=== PATIENT | female | born 1935 | race Caucasian/White ===

== ENCOUNTER 2021-09-26 19:52 | Inpatient (IN) | payer OTHER ==
[~2021-09-26] VITALS: Ht 157.5 cm; Wt 54.4 kg
[~2021-09-26 19:52] MED LIST: ASPI81CH
[2021-09-26 21:32] LABS: BASOPHILS ABSOLUTE AUTO 0.06 K/mm3 (0.00-0.23); BASOPHILS PERCENT AUTO 1 % (0-2); EOSINOPHILS ABSOLUTE AUTO 0.03 K/mm3 (0.00-0.68); EOSINOPHILS PERCENT AUTO 0 % (0-6); Hemoglobin 12.4 g/dL (11.5-16.0); IMMATURE GRAN ABSOLUTE AUTO 0.08 K/mm3 (0.00-0.10); IMMATURE GRAN PERCENT AUTO 1 % (0-1); LYMPHOCYTES ABSOLUTE AUTO 0.97 K/mm3 (0.84-5.20); LYMPHOCYTES PERCENT AUTO 9 % (21-46); MONOCYTES ABSOLUTE AUTO 0.47 K/mm3 (0.16-1.47); MONOCYTES PERCENT AUTO 5 % (4-13); Mean Corpuscular HGB 33.7 pg (26.0-34.0); Mean Corpuscular HGB Conc 32.6 g/dL (31.5-36.5); Mean Corpuscular Volume 103 fL (80-100); Mean Platelet Volume 10.7 fL (9.1-12.4); NEUTROPHILS ABSOLUTE AUTO 8.94 K/mm3 (1.96-9.15); NEUTROPHILS PERCENT AUTO 85 % (41-73); Platelet Count 184 K/mm3 (150-400); RDW Coefficient Variation 12.5 % (11.7-14.2); RDW Standard Deviation 48.2 fL (35.1-46.3); Red Blood Cell Count 3.68 M/mm3 (3.80-5.20); White Blood Cell Count 10.55 K/mm3 (4.00-11.30)
[2021-09-26 21:54] LABS: Magnesium, Blood 1.9 mg/dL (1.6-2.4)
[2021-09-26 21:56] LABS: Alanine Aminotransfer (ALT/SGP 23 U/L (12-78); Albumin, Blood 3.1 g/dL (3.4-5.0); Albumin/Globulin Ratio 0.9 (0.8-1.8); Alk Phos 56 U/L (50-136); Anion Gap 5 mmol/L (6-16); Aspartate Aminotrans (AST/SGOT 28 U/L (12-37); Blood Urea Nitrogen 12 mg/dL (8-24); Bun/Creatinine Ratio 14.9 (12.0-20.0); CO2, Blood 26 mmol/L (21-32); Calcium, Blood 8.6 mg/dL (8.5-10.1); Chloride, Blood 105 mmol/L (98-108); Creatinine, Blood 0.81 mg/dL (0.40-1.00); Globulin, Blood 3.3 g/dL (2.2-4.0); Glomerular Filtration Rate >60 (60-); Glucose, Blood 160 mg/dL (70-99); Phosphorus, Blood 4.1 mg/dL (2.5-4.9); Potassium, Blood 4.1 mmol/L (3.5-5.5); Sodium, Blood 136 mmol/L (136-145); Total Protein, Blood 6.4 g/dL (6.4-8.2)
[2021-09-27 01:01] LABS: PCO2 Arterial 35.8 mmHg (35-45); PO2 Arterial 142 mmHg (80-100); pH Blood Arterial 7.49 (7.35-7.45)
--- NOTE | 2021-09-27 01:05 | NUR ---
ARRIVAL PT ARRIVES TO ICU VIA GURNEY WITH ED RN AND RT. SHE IS SEDATED WITH PROPOFOL AT 9MCG/KG/MIN. WITH STIMULATION, SHE OPENS EYES AND GRIMACES. PROPOFOL TITRATED TO 20MCG/KG/MIN. SHE IS INTUBATED WITH 7.5 TUBE AT 22CM. VENT SETTINGS AC/VC 16/400/7/100%. GLEASON PLACED. VSS AT THIS TIME. DAUGHTER AND GRANDSON AT BEDSIDE FOR UPDATE. SEE SHIFT ASSESSMENT.
[2021-09-27 01:34] LABS: Source, Urine Foley catheter
[2021-09-27 01:36] LABS: Bilirubin, Urine Neg (Neg); Blood, Urine 1+ (Neg); Glucose Qualitative, Urine Neg (Neg); Ketones, Urine 2+ (Neg); Leukocyte Esterase, Urine Neg (Neg); Nitrite, Urine Neg (Neg); Protein, Urine 1+ (Neg); Urobilinogen, Urine NORM (Normal)
[2021-09-27 01:46] LABS: Appearance, Urine Clear (Clear); Bacteria Not Seen /hpf; Color, Urine Yellow (P-Yellow); Mucus Light (0-Heavy); Squamous Epithelial Cells Rare /hpf (Few); White Blood Cells, Urine Rare /hpf (0-5)
[2021-09-27 03:54] LABS: Influenza A, PCR NEGATIVE (NEGATIVE); Influenza B, PCR NEGATIVE (NEGATIVE); Resp Syncytial Virus, PCR NEGATIVE (NEGATIVE); SARS-Cov-2 (COVID-19) PCR, MMC NEGATIVE (NEGATIVE)
[2021-09-27 05:44] LABS: BASOPHILS ABSOLUTE AUTO 0.03 K/mm3 (0.00-0.23); BASOPHILS PERCENT AUTO 0 % (0-2); EOSINOPHILS PERCENT AUTO 0 % (0-6); Hematocrit 34.6 % (33.0-51.0); Hemoglobin 11.6 g/dL (11.5-16.0); IMMATURE GRAN ABSOLUTE AUTO 0.08 K/mm3 (0.00-0.10); IMMATURE GRAN PERCENT AUTO 1 % (0-1); LYMPHOCYTES ABSOLUTE AUTO 0.76 K/mm3 (0.84-5.20); LYMPHOCYTES PERCENT AUTO 5 % (21-46); MONOCYTES ABSOLUTE AUTO 0.69 K/mm3 (0.16-1.47); MONOCYTES PERCENT AUTO 5 % (4-13); Mean Corpuscular HGB Conc 33.5 g/dL (31.5-36.5); Mean Corpuscular Volume 102 fL (80-100); Mean Platelet Volume 11.1 fL (9.1-12.4); NEUTROPHILS ABSOLUTE AUTO 12.49 K/mm3 (1.96-9.15); NEUTROPHILS PERCENT AUTO 89 % (41-73); Platelet Count 141 K/mm3 (150-400); RDW Coefficient Variation 12.6 % (11.7-14.2); Red Blood Cell Count 3.41 M/mm3 (3.80-5.20); White Blood Cell Count 14.05 K/mm3 (4.00-11.30)
[2021-09-27 06:02] LABS: Anion Gap 10 mmol/L (6-16); Blood Urea Nitrogen 12 mg/dL (8-24); Bun/Creatinine Ratio 19.2 (12.0-20.0); CO2, Blood 26 mmol/L (21-32); Calcium, Blood 9.3 mg/dL (8.5-10.1); Chloride, Blood 104 mmol/L (98-108); Creatinine, Blood 0.63 mg/dL (0.40-1.00); Glomerular Filtration Rate >60 (60-); Glucose, Blood 166 mg/dL (70-99); Potassium, Blood 3.4 mmol/L (3.5-5.5); Sodium, Blood 140 mmol/L (136-145)
--- NOTE | 2021-09-27 06:10 | NUR ---
SHIFT SUMMARY PT REMAINS INTUBATED WITH VENT SETTINGS AC/VC 16/380/5/50%. SHE IS RECEIVING PROPOFOL 20MCG/KG/MIN AND NS 125ML/HR. OGT IS CONNECTED TO LOW INT SUCTION AND DRAINING BILE. GLEASON PATENT AND DRAINING CLEAR/YELLOW URINE WITH SHIFT OUTPUT OF 550ML. TRANSVENOUS PACEMAKER TO L CHEST. RATE 60, OUTPUT 10, SENSITIVITY 2 AND INSERTED 40CM. HR HAS BEEN 60 FOR MOST OF NIGHT. WHEN SEDATION IS TURNED DOWN OR OFF, PT WAKENS QUICKLY. SHE TRACKS MOVEMENTS, MOVES EXTREMITIES, AND ANSWERS QUESTIONS BY NODDING/SHAKING HEAD. VSS AT THIS TIME. WILL REPORT TO ONCOMING RN.
--- NOTE | 2021-09-27 07:48 | NUR ---
Assumed Care. Pt opens eyes and is able to answer yes and no questions with head knods. Fusing Machine Tender and follows directions. Pupils reactive, good gag, swallow, and cough noted. Grimacing in pain, knodded yes to chest discomfort from CPR. Fentanyl 50mcq given. Propofol turned up to 30mcq as she was awake and easily aggitated. Lung sounds coarse. AC Vent settings: 16/380/15/50%. Suction performed which the patient did not tolerate well. With repositioning and suction she had 9-10 Beat polymorphic Vtach run. Strips sent to chart. TV Pacer in place and set at 60/10/2. Lowest HR noted was 59, 100% paced. TV pacer dressing intact, marked at 40cm. Abd soft, BT hypoactive. OG to LIS, yellow bile small amounts. Cath is patent with clear yellow. Called Dr. Angeles in regards to run of VTach, and increase in WBC this am. Informed Mag was added to this am labs. Procedure planned for pacemaker placement at [address] Angeles. Will continue to montior and provide care.
--- NOTE | 2021-09-27 08:45 | NUR ---
DR. LORENZ IN ROOM ALONG WITH BOTH OF HER DAUGHTERS. CONSENTS SIGNED. ANSWERED QUESTIONS FOR FAMILY.
--- NOTE | 2021-09-27 09:45 | NUR ---
PATIENT OFF TO COMMUNICATION ASSISTANT, WILL BE COMPANING HER FOR MANAGMENT OF DRIPS AND SEDATION.
--- NOTE | 2021-09-27 12:18 | NUR ---
Patient back from cathead operator at 1140. Please procedure notes. During Procedure she was increased to 50mcq on propofol at 0958. Levophed was started at 1001 due to MAP down to 60, started at 5mcq, then increased to 10mcq. 500 bolus was started at [address] Angeles orders and Levo was stopped at 1012. See EMar for start of other due meds. Dr. Walker in room as soon as patient got back. Vent settings changed to 16/380/15/30%. Decreased propofol to 30. OG hooked back up to LIS. Family now in the room at bedside.
--- NOTE | 2021-09-27 13:00 | NUR ---
PT HAD 20+ BEAT RUN OF POLYMORPHIC V-TACH. SBP [id number]. DR. BEJARANO AND DR. LORENZ AWARE-SEE NEW ORDERS.
--- NOTE | 2021-09-27 14:25 | NUR ---
Spoke with Dr. Walker regarding patient run of VTach. As she has had several little runs since she has been back from the calibration laboratory technician. It was decided to keep the patient intubated at this time, plan will be to extubated tomorrow, allowing for patient to rest.
[2021-09-27 16:16] LABS: BASOPHILS ABSOLUTE AUTO 0.05 K/mm3 (0.00-0.23); BASOPHILS PERCENT AUTO 0 % (0-2); EOSINOPHILS ABSOLUTE AUTO 0.02 K/mm3 (0.00-0.68); EOSINOPHILS PERCENT AUTO 0 % (0-6); Hematocrit 37.8 % (33.0-51.0); Hemoglobin 12.6 g/dL (11.5-16.0); IMMATURE GRAN ABSOLUTE AUTO 0.17 K/mm3 (0.00-0.10); IMMATURE GRAN PERCENT AUTO 1 % (0-1); LYMPHOCYTES ABSOLUTE AUTO 4.12 K/mm3 (0.84-5.20); LYMPHOCYTES PERCENT AUTO 24 % (21-46); MONOCYTES PERCENT AUTO 5 % (4-13); Mean Corpuscular HGB 33.7 pg (26.0-34.0); Mean Corpuscular HGB Conc 33.3 g/dL (31.5-36.5); Mean Corpuscular Volume 101 fL (80-100); Mean Platelet Volume 10.9 fL (9.1-12.4); NEUTROPHILS ABSOLUTE AUTO 12.14 K/mm3 (1.96-9.15); NEUTROPHILS PERCENT AUTO 70 % (41-73); Platelet Count 168 K/mm3 (150-400); RDW Coefficient Variation 12.8 % (11.7-14.2); RDW Standard Deviation 47.4 fL (35.1-46.3); Red Blood Cell Count 3.74 M/mm3 (3.80-5.20)
[2021-09-27 16:19] LABS: PCO2 Arterial 38.4 mmHg (35-45); PO2 Arterial 53.7 mmHg (80-100); pH Blood Arterial 7.39 (7.35-7.45)
[2021-09-27 16:25] LABS: Anion Gap 11 mmol/L (6-16); Blood Urea Nitrogen 12 mg/dL (8-24); Bun/Creatinine Ratio 15.2 (12.0-20.0); CO2, Blood 24 mmol/L (21-32); Calcium, Blood 8.7 mg/dL (8.5-10.1); Chloride, Blood 106 mmol/L (98-108); Creatinine, Blood 0.79 mg/dL (0.40-1.00); Glomerular Filtration Rate >60 (60-); Glucose, Blood 151 mg/dL (70-99); Magnesium, Blood 3.2 mg/dL (1.6-2.4); Potassium, Blood 3.5 mmol/L (3.5-5.5); Sodium, Blood 141 mmol/L (136-145)
[2021-09-27 16:33] LABS: International Normalized Ratio 1.15
--- NOTE | 2021-09-27 16:56 | NUR ---
Supportive visit this afternoon. Arrived to Pt's room with code in progress. Daughter Sayra sitting in chair outside of Pt's room. Offered emotional support and answered questions. Offered therapeutic listening as Pt has 4 daughters, several grandchildren, and great grandchildren. Many live in [place]. Provided updates and continued therapeutic listening. Plan for Pt to go to ammunition assembly i laborer. Stormy's Roberto and son French arrive. Dr Walker and Dr Angeles provide update on plan of care. Spoke with Primary RNs Kayleigh Esparza and discussed case. Palliative Care will remain available.
--- NOTE | 2021-09-27 18:52 | NUR ---
PT EXTUBATED TO COMFORT CARE AT THIS TIME WITHOUT COMPLICATIONS.
--- NOTE | 2021-09-27 19:06 | NUR ---
SHIFT SUMMARY: PATIENT HAS BEEN VERY UNSTABLE THE ENTIRE SHIFT. SEVERAL TIMES GOING IN AND OUT OF VTACH/VFIB. CODE X2 FIRST WAS AT 1546 AND SECOND ONE AT 1804. PLEASE SEE CODE FLOW SHEETS. SHE WENT BACK TO ASSISTANT CASE MANAGER AROUND [address] LORENZ TO TAKE A LOOK AT WHAT MIGHT BE CAUSING THE VFIB/TACH. 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 AFTER LAST CODE DR. BEJARANO DISCUSSED FURTHER CARE WITH THE FAMILY WHICH CAME TO THE DECISION OF DNR/COMFORT CARE. COMFORT MEDS WERE GIVEN, SEE EMAR. FAMILY WAS AT BEDSIDE WHEN EXTUBATION WAS DONE AT 1852. REST OF FAMILY IN ROOM TO SAY GOOD BYE. PATIENT PASSED AT 1910. DR. BEJARANO INFORMED.
== END 2021-09-27 19:10 | DRG 242 ==
LOC: ER 19:52 → ICUW 23:14 → ICUE 23:14
PROVIDERS: Family Medicine; Internal Medicine; Internal Medicine Critical Care Medicine; Physician Assistant; Student in an Organized Health Care Education/Training Program; ADMIT Hospitalist
PROC: 0HQ0XZZ Repair Scalp Skin, External Approach (ICD-10-PCS; principal; 2021-09-26)
PROC: 0JH606Z Insertion of Pacemaker, Dual Chamber into Chest Subcutaneous Tissue and Fascia, Open Approach (ICD-10-PCS; 2021-09-26)
PROC: 0BH17EZ Insertion of Endotracheal Airway into Trachea, Via Natural or Artificial Opening (ICD-10-PCS; 2021-09-26)
PROC: 5A1223Z Performance of Cardiac Pacing, Continuous (ICD-10-PCS; 2021-09-26)
PROC: 0DH64UZ Insertion of Feeding Device into Stomach, Percutaneous Endoscopic Approach (ICD-10-PCS; 2021-09-26)
PROC: 5A2204Z Restoration of Cardiac Rhythm, Single (ICD-10-PCS; 2021-09-26)
PROC: 02HK3JZ Insertion of Pacemaker Lead into Right Ventricle, Percutaneous Approach (ICD-10-PCS; 2021-09-27)
PROC: 02H63JZ Insertion of Pacemaker Lead into Right Atrium, Percutaneous Approach (ICD-10-PCS; 2021-09-27)
PROC: 5A1935Z Respiratory Ventilation, Less than 24 Consecutive Hours (ICD-10-PCS; 2021-09-27)
PROC: 06HY33Z Insertion of Infusion Device into Lower Vein, Percutaneous Approach (ICD-10-PCS; 2021-09-27)
PROC: 3E033XZ Introduction of Vasopressor into Peripheral Vein, Percutaneous Approach (ICD-10-PCS; 2021-09-27)
PROC: 3E02340 Introduction of Influenza Vaccine into Muscle, Percutaneous Approach (ICD-10-PCS; 2021-09-27)
PROC: 4A023N8 Measurement of Cardiac Sampling and Pressure, Bilateral, Percutaneous Approach (ICD-10-PCS; 2021-09-27)
PROC: B2111ZZ Fluoroscopy of Multiple Coronary Arteries using Low Osmolar Contrast (ICD-10-PCS; 2021-09-27)
DX: I44.2 Atrioventricular block, complete (principal); J96.00 Acute respiratory failure, unspecified whether with hypoxia or hypercapnia; I24.8 Other forms of acute ischemic heart disease; Z51.5 Encounter for palliative care; Z20.822 Contact with and (suspected) exposure to COVID-19; I46.2 Cardiac arrest due to underlying cardiac condition; I25.10 Atherosclerotic heart disease of native coronary artery without angina pectoris; I49.01 Ventricular fibrillation; S01.01XA Laceration without foreign body of scalp, initial encounter; S09.90XA Unspecified injury of head, initial encounter; I47.2 Ventricular tachycardia; W18.09XA Striking against other object with subsequent fall, initial encounter; I50.9 Heart failure, unspecified; I95.9 Hypotension, unspecified; I35.0 Nonrheumatic aortic (valve) stenosis; Y92.091 Bathroom in other non-institutional residence as the place of occurrence of the external cause; Z98.890 Other specified postprocedural states; Z79.82 Long term (current) use of aspirin; Z23 Encounter for immunization
CPT/HCPCS: 0241U; 12002; 31500; 33208; 33210; 36415; 36556; 36600; 51702; 70450; 71045; 71046; 72125; 80048; 80053; 81001; 82803; 82947; 83690; 83735; 83880; 84100; 84439; 84443; 84484; 85025; 85610; 85730; 90471; 90686; 90714; 92950; 93005; 93010; 93306; 93454; 94002; 94003; 96374; 96375; 99152; 99153; 99285-25; A9270; C1751; C1760; C1769; C1785; C1786; C1894; C1898; J0282; J0690; J1580; J1644; J1940; J2060; J2250; J2270; J2370; J2704; J3010; J3475; J3480; J7030; J7040; J7050; J7060; Q9967